=== PATIENT | male | born 1995 | race Caucasian/White ===

== ENCOUNTER 2024-07-09 14:34 | Emergency (ER) | payer OTHER ==
[2024-07-09 14:48] VITALS: BP 137/84; O2SAT 96
--- NOTE | 2024-07-09 14:52 | ED Physician Documentation ---
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 PD PAST MEDICAL HISTORY - Past Medical History Past Medical History: No Cardiovascular: None Respiratory: None Neuro: None Endocrine/Autoimmune: None GI: None : None HEENT: None Psych: None Musculoskeletal: None Derm: None - Past Surgical History Past Surgical History: Yes Ortho: Other - Allergies Allergies/Adverse Reactions: Allergies Allergy/AdvReac Type Severity Reaction Status Date / Time No Known Drug Allergies Allergy Verified 07/09/24 14:45 - Social History Does the pt smoke?: No Smoking Status: Never smoker Does the pt drink ETOH?: No Does the pt have substance abuse?: No - Immunizations Immunizations are current?: Yes - POLST Patient has POLST: No PD ED PE NORMAL - Vitals Vital signs reviewed: Yes - General General: Alert and oriented X 3, No acute distress - Extremities Extremities: Other (Focused exam of the left hand. He has a very small less than 1 cm tip amputation of the second finger with active bleeding and really just abraded third digit.) - Neuro Neuro: Alert and oriented X 3 Results - Vitals Vitals: Vital Signs - 24 hr 07/09/24 14:39 Temperature 36.5 C Heart Rate 60 Respiratory 16 Rate Blood Pressure 137/84 H O2 Saturation 96 Oxygen O2 Source Room air PD Medical Decision Making - ED course ED course: Wounds were irrigated and then the second finger was dressed with Gelfoam and tube gauze for hemostasis and he was counseled on wound care. Departure - Departure Disposition: 01 Home, Self Care Clinical Impression: Fingertip amputation Qualifiers: Encounter type: initial encounter Qualified Code(s): S68.119A - Complete traumatic metacarpophalangeal amputation of unspecified finger, initial encounter Condition: Good Record reviewed to determine appropriate education?: Yes Instructions: ED Laceration Amputation Finger Tip Open Tx Comments: Soak the current dressing off on Wednesday after which time some bacitracin ointment and a fingertip Band-Aid/dressing. He will have to do that daily for a week or 2 and then the skin should heal and just fine. Follow-up with your flight physician if not healing as expected in the next few days.
== END 2024-07-09 15:03 | disposition home or self-care (01) ==
LOC: ED 14:34
DX: S68.111A Complete traumatic metacarpophalangeal amputation of left index finger, initial encounter (principal); W22.8XXA Striking against or struck by other objects, initial encounter; Y92.009 Unspecified place in unspecified non-institutional (private) residence as the place of occurrence of the external cause
CPT/HCPCS: 99281; 99283